=== PATIENT | male | born 1955 | race Caucasian/White ===

== ENCOUNTER → 2019-10-22 08:52 | Outpatient (CLI) | payer OTHER ==
[2015-10-30 14:53] VITALS: BMI 26.9
[~2019-10-22 08:52] MED LIST: CARDIZEM LA360 MG PO; IBUPROFEN800 MG PO; LANOXIN250 MCG PO; LIPITOR10 MG PO; PRILOSEC20 MG PO; XANAX0.25 MG; XARELTO20 MG PO
== END | disposition home or self-care (01) ==
LOC: D.HCCECHO 08:52
PROVIDERS: ATTEND Internal Medicine Cardiovascular Disease
DX: I10 Essential (primary) hypertension (principal)